=== PATIENT | male | born 1980 | race Caucasian/White ===

== ENCOUNTER 2017-01-03 15:55 | Inpatient (IN) | payer OTHER ==
[~2017-01-03] VITALS: Ht 182.8 cm; Wt 95.0 kg
[2017-01-03 16:06] VITALS: BP 140/90
[2017-01-03 16:24] LABS: BILIRUBIN NEGATIVE (NEGATIVE); BLOOD TRACE-INTACT (NEGATIVE); CLARITY SL CLOUDY (CLEAR); COLOR YELLOW (YELLOW); GLUCOSE NEGATIVE (NEGATIVE); KETONE NEGATIVE (NEGATIVE); LEUKO ESTERASE NEGATIVE (NEGATIVE); NITRITE NEGATIVE (NEGATIVE); PH 5.5 (5.0-9.0); SPECIFIC GRAVITY 1.025 (1.005-1.030); UROBILINOGEN 0.2 E.U./dl (0.2-1.0)
[2017-01-03 16:33] LABS: URINE AMPHETAMINES < 1000 (1000ng/ml); URINE BARBITURATES < 200 (200ng/ml); URINE BENZODIAZEPINES < 200 (200ng/ml); URINE CANNABINOIDS (THC) < 50 (50ng/ml); URINE COCAINE > 300 (300ng/ml); URINE METHADONE < 300 (300ng/ml); URINE OPIATES > 300 (300ng/ml); URINE PHENCYCLIDINE < 25 (25ng/ml)
[2017-01-03 16:37] LABS: BACTERIA 1+; EPITHELIAL CELLS 0-2; MUCOUS TRACE; WBC 0-2 wbc/hpf (0-5)
[2017-01-03 16:39] LABS: BASO % 0.3 % (0.0-1.0); EOS % 0.2 % (1.0-4.0); HEMOGLOBIN 13.9 g/dl (14.0-18.0); LYMPH # 0.6 10*3/uL (1.3-4.4); MEAN CELL VOLUME 90.1 fl (80.0-94.0); MEAN CORPUSCULAR HGB 30.5 pg (27.0-31.0); MEAN CORPUSCULAR HGB CONC 33.9 g/dl (33.0-37.0); MEAN PLATELET VOLUME 9.2 fl (9.6-12.3); MONO # 0.6 10*3/uL (0.1-1.0); MONO % 6.4 % (3.0-9.0); NEUT # 8.3 10*3/uL (2.3-7.9); NEUT % 86.7 % (47.0-73.0); PLATELET COUNT AUTOMATED 302 10*3/uL (130-400); RED BLOOD COUNT 4.55 10*6/uL (4.50-5.90); RED CELL DISTRI WIDTH 12.3 % (0-14.5); WHITE BLOOD COUNT 9.5 10*3/uL (4.8-10.8)
[2017-01-03 16:54] LABS: ALBUMIN 3.7 gm/dl (3.1-4.5); ALKALINE PHOSPHATASE 72 U/L (45-117); BUN 11 mg/dl (7-24); CHLORIDE 99 mmol/L (98-107); CREATININE 1.03 mg/dL (0.70-1.30); POTASSIUM 3.8 mmol/L (3.5-5.1); SGOT/AST 14 IU/L (3-35); SGPT/ALT 17 U/L (12-78); SODIUM 136 mmol/L (136-145); TOTAL PROTEIN 7.9 gm/dL (6.4-8.2)
[2017-01-03 17:01] LABS: ACETAMINOPHEN (TYLENOL) < 2.0 ug/ml (10-30); ETHYL ALCOHOL < 3.0 mg/dl (<3)
[2017-01-03 17:20] VITALS: BP 115/78
--- NOTE | 2017-01-03 17:48 | NUR ---
36 year old MALE admitted to room # 401 for stabilization. 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 Compliant with admission procedure. Patient denies any anxiety, but is unable to sit still, taps toes to floor continuously, looks about room, unable to focus eyes on nurse during interview. See assessment forms for additional information about patient status.
[2017-01-03 20:00] VITALS: BP 120/82
--- NOTE | 2017-01-03 20:06 | NUR ---
PT REFUSED SUBUTEX AT THIS TIME, EDUCATION PROVIDED BUT INEFFECTIVE AT THIS TIME, OFFERED PRN MEDICATIONS FOR WITHDRAWL SYMPTOMS BUT PT STATES HE DOES NOT WANT MEDICATIONS AT THIS TIME
[2017-01-04] VITALS: BP 107/58
--- NOTE | 2017-01-04 03:32 | NUR ---
PT RESTING IN BED, WOKE PT UP FOR DOSE OF SUBUTEX AND PT REFUSED, PT AGGITATED AT THIS TIME.
[2017-01-04 04:00] VITALS: BP 105/74
[2017-01-04 08:00] VITALS: BP 113/69
[2017-01-04 12:00] VITALS: BP 114/70
--- NOTE | 2017-01-04 12:31 | NUR ---
PATIENT ASSESSED AND THEN REQUESTED TO BE LEFT ALONE AND DENIED PRN MEDICATIONS.
--- NOTE | 2017-01-04 15:32 | NUR ---
D/C PLAN: PATIENT IS SET UP TO GO TO [facility] IN [place], [place] ON SATURDAY, January. TRANSPORTATION IS SET TO PICK PATIENT UP AROUND 11AM. PATIENT AGREES AND UNDERSTANDS AFTERCARE PLAN-JAHAIRA MCCORMICK B.A. FAMILY SERV[employer] WORKER
--- NOTE | 2017-01-04 15:52 | NUR ---
PT DENIES NEED FOR PRN MEDICATIONS AT THIS TIME. AFFECT REMAINS FLAT.
[2017-01-04 16:00] VITALS: BP 92/50
--- NOTE | 2017-01-04 19:26 | NUR ---
PATIENT RESTING IN BED WITH LEFT SIDE. ARROUSES EASILY. NO NEEDS MADE. REFUSING PRN'S. BED IN LOWEST POSITION, CALL LIGHT IN REACH
[2017-01-04 20:00] VITALS: BP 105/53
--- NOTE | 2017-01-04 20:15 | NUR ---
PATIENT REFUSING VITALS AT THIS TIME. TOLD PA "IM TIRED OF YOU F*CKING PEOPLE COMING IN HERE AND BOTHERING ME".
[2017-01-05] VITALS: BP 117/81
--- NOTE | 2017-01-05 01:58 | NUR ---
PATIENT STATED HE WANTED TO LEAVE TO GO OUTSIDE TO SMOKE. EDUCATED ON THE IMPORTANCE OF COMPLETING THE PROGRAM AND SMOKING CESSATION. STATES THE PATCH DOES NOT HELP HIM. OFFERED THE INHALER OR GUM. STATES HE WILL TRY THE INHALER AND GET A SHOWER. REFUSING ANY OTHER PRN MEDICATION. DECIDES HE WILL NOT GO AMA. WILL MONITOR
--- NOTE | 2017-01-05 02:49 | NUR ---
24 HR chart check completed.
--- NOTE | 2017-01-05 05:36 | NUR ---
PATIENT RESTING IN BED WITH EYES CLOSED. WILL CONTINUE TO MONITOR
--- NOTE | 2017-01-05 06:25 | NUR ---
PATIENT UP TO NURSES STATION STATING THAT IS FAMILY IS HERE AND HE IS LEAVING AMA. PAPERS SIGNED. BELONGINGS IN HAND. EDUCATED ON THE IMPORTANCE OF COMPLETING THE PROGRAM. REFUSES TO STAY.
== END 2017-01-05 06:25 | disposition left against medical advice (07) | DRG 894 ==
LOC: ED 15:55 → 4E 16:44 → EDHOLD 16:44 → 4E 17:04
PROVIDERS: Internal Medicine; Nurse Practitioner Family; ADMIT Internal Medicine
DX: F11.23 Opioid dependence with withdrawal (principal); F14.10 Cocaine abuse, uncomplicated; D64.9 Anemia, unspecified; F17.210 Nicotine dependence, cigarettes, uncomplicated; D72.825 Bandemia; Z53.21 Procedure and treatment not carried out due to patient leaving prior to being seen by health care provider; R00.0 Tachycardia, unspecified; R31.9 Hematuria, unspecified; R73.9 Hyperglycemia, unspecified; Z71.6 Tobacco abuse counseling